=== PATIENT | female | born 1990 | race Caucasian/White ===

== ENCOUNTER 2021-01-28 00:44 | Emergency (ER) | payer OTHER ==
[~2021-01-28] VITALS: Ht 162.6 cm; Wt 127.0 kg
--- NOTE | 2021-01-28 01:47 | PHYS DOC ---
Past History Past Surgical History: Cholecystectomy, (4) General Adult EDM: Chief Complaint: ABDOMINAL PAIN HPI: HPI: ".. I am having really bad abdomen pain.. it zaire started yesterday.. " Patient is a 30 year old female dependent who presents with above hx and complaints generalized abdomen pain which started yesterday. Patient denies any intake of bad food. No recent travel. No specific ill contacts. Has had poor intake of food today. Patient states she has had normal stools. No one else in the hospital is currently ill. has not had any recent overseas deployments. No history of immunosuppression. Patient has had 4 C-sections, and cholecystectomy. No history of colitis, ovarian cysts, or renal stones. Patient denies any vaginal discharge. Patient denies any fever or chills. Patient has not completed COVID vaccination. Patient normally follows at [facility] with Dr. Gracia Review of Systems: Review of Systems: Constitutional: Denies fever or chills Eyes: Denies change in visual acuity HENT: Denies nasal congestion or sore throat Respiratory: Denies cough or shortness of breath Cardiovascular: Denies chest pain or edema GI: Complains of generalized abdominal pain, nausea,. . Vomiting, bloody stools or diarrhea : Denies dysuria Musculoskeletal: Denies back pain or joint pain Integument: Denies rash Neurologic: Denies headache, focal weakness or sensory changes Endocrine: Denies polyuria or polydipsia Lymphatic: Denies swollen glands Psychiatric: Denies depression or anxiety Family History: Family History: Noncontributory to presentation Current Medications: Current Meds: See nursing for home meds Allergies: Allergies: Allergic to sulfa Physical Exam: PE: Constitutional: Moderate acute distress, non-toxic appearance. [] HENT: Normocephalic, atraumatic, bilateral external ears normal, oropharynx moist, no oral exudates, nose normal. [] Eyes: PERRLA, EOMI, conjunctiva normal, no discharge. [] Neck: Normal range of motion, no tenderness, supple, no stridor. [] Cardiovascular:Heart rate regular rhythm, no murmur [] Lungs & Thorax: Bilateral breath sounds equal apex on rauscultation [] Abdomen: Bowel sounds decreased,, soft, generalized tenderness, no masses, no pulsatile masses. Old surgical scars. Rebound to right lower quadrant. Patient declined rectal at this time in the fast-track area. Obese Skin: Warm, dry, no erythema, no rash. [] Back: No tenderness, no CVA tenderness. [] Extremities: No tenderness, no cyanosis, no clubbing, ROM intact, no edema. Right side psoas findings. No cording appreciated Neurologic: Alert and oriented X 3, normal motor function, normal sensory function, no focal deficits noted. [] Psychologic: Affect anxious, judgement normal, mood normal. [] EKG: EKG: My interpretation EKG shows a sinus rhythm at 67 bpm. Does have findings of a right bundle branch block but no acute morphology. Time of this EKG was over 400 hours [] Radiology/Procedures: Radiology/Procedures: [[address] [address] IMAGING REPORT Signed PATIENT: NELSON SUERO MACCOUNT: [id number] : 1990 LOCATION: ER AGE: 30 SEX: F EXAM STATUS: REG ER ORD. PHYSICIAN: VALENTIN CHAPPELL MD REASON: OMNI 300,75ML IV. ABD PAIN PROCEDURE: CT ABD PELV W/ IV CONTRST ONLY Exam: CT abdomen/pelvis with intravenous contrast Indication: Abdominal pain Comparison: None Technique: Helical CT imaging performed of the abdomen and pelvis after the intravenous administration of 75 mL Omnipaque 300 contrast. Sagittal and coronal reformats were obtained. One or more of the following individualized dose reduction techniques were utilized for this examination: 1. Automated exposure control 2. Adjustment of the mA and/or kV according to patient size 3. Use of iterative reconstruction technique. Findings: Lower chest: The lung bases are clear. The heart is normal in size Liver: There is severely decreased hepatic attenuation. Liver is mildly enlarged measuring 22 cm in length. Gallbladder/Biliary Tree: Gallbladder is not visualized. Bile ducts are normal. Pancreas: Normal Spleen: Normal. Adrenal Glands: Normal. Kidneys/Ureters/Bladder: Normal. No hydronephrosis. Reproductive Organs: Normal. Stomach, small bowel, and colon: The stomach and small bowel are normal. The appendix is mildly dilated measuring 8 mm with mild wall thickening and subtle inflammation. No perforation or fluid collection. The colon is normal. Vasculature: No aortic aneurysm. Lymph Nodes: No lymphadenopathy. Peritoneum and retroperitoneum: Trace free fluid in the pelvis. No free air. Bones: No acute osseous abnormality. Mild left greater than right sacroiliac joint sclerosis. Impression: 1. Uncomplicated acute appendicitis. 2. Hepatomegaly and severe hepatic steatosis. FOR INTERNAL CODING PURPOSES Critical result: Findings discussed with Dr. Chappell at 01/28/2021 5:48 AM. RESULT CODE: (C) 1. Electronically signed by: Skylar Bettencourt MD (01/28/2021 5:49 AM) [id number] DICTATED AND SIGNED BY: SKYLAR BETTENCOURT MD DATE: 01/28/21543 CC: VALENTIN CHAPPELL MD; PCP,UNKNOWN ~MTH0 0 ][place] [address] IMAGING REPORT Signed PATIENT: NELSON SUERO MACCOUNT: [id number] : 1990 LOCATION: ER AGE: 30 SEX: F EXAM STATUS: REG ER ORD. PHYSICIAN: VALENTIN CHAPPELL MD REASON: pain PROCEDURE: ACUTE ABDOMEN SERIES EXAM: XR ABDOMEN COMP ACUTE 01/28/2021 3:38 AM CLINICAL INDICATION: Pain COMPARISON: None TECHNIQUE: AP supine and upright view of the abdomen and PA view of the chest FINDINGS: Bowel gas pattern is nonspecific and nonobstructive. Normal volume of stool. There are cholecystectomy clips. No pneumoperitoneum. The heart and lungs are normal. No acute osseous abnormality. IMPRESSION: Normal abdominal series radiograph. Electronically signed by: Skylar Bettencourt MD (01/28/2021 5:21 AM) [id number] DICTATED AND SIGNED BY: SKYLAR BETTENCOURT MD DATE: 01/28/21520 CC: VALENTIN CHAPPELL MD; PCP,UNKNOWN ~MTH0 0 Heart Score: C/O Chest Pain: N/A HEART Score for Chest Pain: HEART Score for Chest Pain Response (Comments) Value History Slighlty/Non-Suspicious 0 ECG Normal 0 Age < 45 0 Risk Factors 1 or 2 Risk Factors 1 Troponin < Normal Limit 0 Total 1 Risk Factors: Risk Factors: DM, Current or recent (<one month) smoker, HTN, HLP, family history of CAD, obesity. Risk Scores: Score 0 - 3: 2.5% MACE over next 6 weeks - Discharge Home Score 4 - 6: 20.3% MACE over next 6 weeks - Admit for Clinical Observation Score 7 - 10: 72.7% MACE over next 6 weeks - Early Invasive Strategies Course & Med Decision Making: Course & Med Decision Making Pertinent Labs and Imaging studies reviewed. (See chart for details) Patient initially requesting discharge not waiting for pending labs or CT results. Pt. reported relief of pain with Toradol. (Patient declined any narcotic meds). Impressed upon patient my feelings that she had a acute appendicitis and should make plans for childcare. Patient requesting she be dscharge and results of labs and CT results be called to her at her home. Pt. did have her IV removed and was in the process of leaving the ED [facility] when results of CT were available. Advised patient that she had acute appendicitis and encouraged her to remain in the emergency department at least get antibiotics started. Patient eventually agrees to antibiotics and transfer to a surgical site. Discussed presentation, testing and treatment plan with Dr. Bennett-agreed to consult on patient. Advised that there are no beds at [facility]-consider transfer to the presurgery area, and complete the surgery. If needed patient could be transferred back to [facility] for a medical bed post surgery. Discussed presentation testing and treatment plan with Dr. Galo-hospitalist at [facility]. Denies he would accept patient as primary and consult Dr. Bennett. Dr. Galo felt there would be medical beds open up this morning. At [facility].. Impression: 1. Abdomen pain 2. Acute appendicitis- 3. Obese 4. Leukocytosis 11.8 Covid testing still pending at shift change. [] Alberto Disclaimer: Alberto Disclaimer: This electronic medical record was generated, in whole or in part, using a voice recognition dictation system. Departure Departure: Referrals: PCP,UNKNOWN (PCP) Alberto Disclaimer This chart was dictated in whole or in part using Voice Recognition software in a busy, high-work load, and often noisy Emergency Department environment. It may contain unintended and wholly unrecognized errors or omissions. VALENTIN CHAPPELL MD Jan 28, 2021 01:47
[2021-01-28 02:16] LABS: BACTERIA,URINE 0 /HPF (0-FEW); BILIRUBIN,URINE NEG (NEG); CLARITY,URINE CLEAR; COLOR,URINE YELLOW; GLUCOSE,URINE NEG (NEG); NITRITE,URINE NEG (NEG); RBC,URINE 0 /HPF (0-2); SQUAMOUS EPITHELIAL CELL,UR OCC /LPF; UROBILINOGEN,URINE 0.2 mg/dL (0.2 mg/dL); WBC,URINE RARE /HPF (0-4)
[2021-01-28] MEDS ORDERED: IOHEXOL 240 MG/ML 50ML VIAL. ONE (03:43)
[2021-01-28] MEDS ORDERED: IOHEXOL 300 MG/ML 75 ML VIAL. IV ONE (03:45)
[2021-01-28] MEDS ORDERED: FAMOTIDINE 20 MG/2 ML VIAL IVP ONE (03:45)
[2021-01-28] MEDS ORDERED: KETOROLAC 30 MG/ML VIAL. IVP ONE (03:45)
[2021-01-28] MEDS ORDERED: ONDANSETRON PF 4 MG/2 ML VIAL. IVP ONE (03:45)
[2021-01-28] MEDS ORDERED: IV RINGERS SOLUTION,LACTATED 1,000 ML IV SCH (03:45)
[2021-01-28] MEDS ORDERED: CONTRAST GIVEN. MC PRN (03:45)
--- NOTE | 2021-01-28 04:13 | EKG ---
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
[2021-01-28 05:15] LABS: BASO % 0 % (0-3); EOS # 0.1 x10^3/uL (0.0-0.7); EOS % 1 % (0-3); HEMATOCRIT 37.4 % (36.0-47.0); HEMOGLOBIN 12.2 g/dL (12.0-15.5); LYMPH # 1.4 x10^3/uL (1.0-4.8); LYMPH % 12 % (24-48); MEAN CORPUSCULAR HEMOGLOBIN 27 pg (25-35); MEAN CORPUSCULAR HGB CONC 33 g/dL (31-37); MEAN CORPUSCULAR VOLUME 83 fL (79-100); MONO # 0.5 x10^3/uL (0.0-1.1); MONO % 5 % (0-9); NEUT # 9.8 x10^3uL (1.8-7.7); NEUT % 83 % (31-73); PLATELET COUNT 246 x10^3/uL (140-400); RED CELL DISTRIBUTION WIDTH 14.2 % (11.5-14.5); WHITE BLOOD COUNT 11.8 x10^3/uL (4.0-11.0)
--- NOTE | 2021-01-28 05:23 | RAD ---
EXAM: XR ABDOMEN COMP ACUTE 01/28/2021 3:38 AM CLINICAL INDICATION: Pain COMPARISON: None TECHNIQUE: AP supine and upright view of the abdomen and PA view of the chest FINDINGS: Bowel gas pattern is nonspecific and nonobstructive. Normal volume of stool. There are cho lecystectomy clips. No pneumoperitoneum. The heart and lungs are normal. No acute osseous abnormality . IMPRESSION: Normal abdominal series radiograph. Electronically signed by: Skylar Bettencourt MD (01/28/2021 5:21 AM) [id number]
[2021-01-28 05:41] LABS: CALCIUM 8.5 mg/dL (8.5-10.1); CREATININE 0.7 mg/dL (0.6-1.0); GFR 99.6; POTASSIUM 4.1 mmol/L (3.5-5.1)
[2021-01-28 05:47] LABS: ALBUMIN 3.7 g/dL (3.4-5.0); DIRECT BILIRUBIN 0.1 mg/dL (0.0-0.2); TOTAL BILIRUBIN 0.2 mg/dL (0.2-1.0); TOTAL PROTEIN 6.8 g/dL (6.4-8.2)
--- NOTE | 2021-01-28 05:51 | RAD ---
Exam: CT abdomen/pelvis with intravenous contrast Indication: Abdominal pain Comparison: None Technique: Helical CT imaging performed of the abdomen and pelvis after the intravenous administratio n of 75 mL Omnipaque 300 contrast. Sagittal and coronal reformats were obtained. One or more of the following individualized dose reduction techniques were utilized for this examinat ion: 1. Automated exposure control 2. Adjustment of the mA and/or kV according to patient size 3. Use of iterative reconstruction technique. Findings: Lower chest: The lung bases are clear. The heart is normal in size Liver: There is severely decreased hepatic attenuation. Liver is mildly enlarged measuring 22 cm in l ength. Gallbladder/Biliary Tree: Gallbladder is not visualized. Bile ducts are normal. Pancreas: Normal Spleen: Normal. Adrenal Glands: Normal. Kidneys/Ureters/Bladder: Normal. No hydronephrosis. Reproductive Organs: Normal. Stomach, small bowel, and colon: The stomach and small bowel are normal. The appendix is mildly dilat ed measuring 8 mm with mild wall thickening and subtle inflammation. No perforation or fluid collecti on. The colon is normal. Vasculature: No aortic aneurysm. Lymph Nodes: No lymphadenopathy. Peritoneum and retroperitoneum: Trace free fluid in the pelvis. No free air. Bones: No acute osseous abnormality. Mild left greater than right sacroiliac joint sclerosis. Impression: 1. Uncomplicated acute appendicitis. 2. Hepatomegaly and severe hepatic steatosis. FOR INTERNAL CODING PURPOSES Critical result: Findings discussed with Dr. Chappell at 01/28/2021 5:48 AM. RESULT CODE: (C) 1. Electronically signed by: Skylar Bettencourt MD (01/28/2021 5:49 AM) [id number]
[2021-01-28] MEDS ORDERED: IV RINGERS SOLUTION,LACTATED 1,000 ML IV ONE (06:00)
[2021-01-28] MEDS ORDERED: IV NORMAL SALINE 50ML 50 ML ONE (06:25)
[2021-01-28] MEDS ORDERED: cefTRIAXone SODIUM 1 GM VIAL ONE (06:25)
[2021-01-28 06:48] LABS: U PREG PATIENT NEGATIVE (NEG)
[2021-01-28 09:09] VITALS: BP 141/73
== END 2021-01-28 09:44 | disposition short-term general hospital (02) ==
LOC: ER 00:44
DX: K35.80 Unspecified acute appendicitis (principal); E66.9 Obesity, unspecified; D72.829 Elevated white blood cell count, unspecified; Z68.42 Body mass index [BMI] 45.0-49.9, adult; Z20.822 Contact with and (suspected) exposure to COVID-19
CPT/HCPCS: 74022; 74177; 80048; 80076; 81001; 81025; 82150; 82550; 83690; 84484; 85025; 87426; 93005; 96361; 96365; 96366; 96367; 96375; 99285; J0696; J1885; J2405; J3490; J7120; Q9967; U0003

== ENCOUNTER 2021-08-14 18:35 | Emergency (ER) | payer OTHER ==
[~2021-08-14] VITALS: Ht 162.6 cm; Wt 127.0 kg
[2021-08-14 19:26] VITALS: BP 135/80
[2021-08-14] MEDS ORDERED: IBUPROFEN 600 MG TABLET. PO ONE (20:15)
--- NOTE | 2021-08-14 20:32 | RAD ---
XR KNEE _4 VIEWS WITH PATELLA_LT History: Reason: fall, pain / Spl. Instructions: / History: Technique: 4 views left knee Comparison: None. Findings: Postoperative changes anterior cruciate ligament repair. Mild right knee degenerative changes most pr ominent within the medial and patellofemoral compartment. Knee joint effusion. Difficult to evaluate quantity due to technique. Anterior knee soft tissue swelling. No dislocation. No acute fracture. Impression: 1. No acute osseous abnormality. 2. Knee joint effusion. 3. Postoperative changes left knee with DJD. Electronically signed by: Nando Vázquez DO (08/14/2021 8:29 PM) [facility]
--- NOTE | 2021-08-14 21:05 | PHYS DOC ---
Past History Additional Past Medical Histor: PRE-ECLAMPSIA (ROXANA SOTO) Past Surgical History: Cholecystectomy, Additional Past Surgical Histo: c -section x 3, left knee x 6 (ROXANA SOTO) Alcohol Use: None (ROXANA SOTO) General Adult EDM: Chief Complaint: KNEE INJURY HPI: HPI: Patient is a 30 year old female with history of 6 left knee surgeries who presents with left knee pain status post mechanical fall at home. Patient states that she recently moved into a new home. She was walking in the backyard, and stepped on a manhole that she was unaware was there. Patient states the manhole cover tipped upwards and she hit the front of her knee on the edge of the manhole. She rates her pain 34 out of 10, however states that when she attempts to walk, her knee "diane underneath" her. Patient denies any other trauma or injury. (ROXANA SOTO) Review of Systems: Review of Systems: ROS negative or noncontributory except as mentioned in HPI. (ROXANA SOTO) Current Medications: Current Meds: Current Medications Medications (Trade) Dose Ordered Sig/Yoel Start Time Stop Time Status Last Admin Dose Admin Ibuprofen (Motrin) 600 mg 1X ONCE 08/14/21 20:15 08/14/21 20:16 DC 08/14/21 20:15 600 MG (ROXANA SOTO) Allergies: Allergies: Allergies Coded Allergies Type Severity Reaction Last Updated Verified Sulfa (Sulfonamide Antibiotics) Allergy Intermediate Unknown 08/14/21 Yes (ROXANA SOTO) Physical Exam: PE: Constitutional: Obese, well-groomed, no acute distress, non-toxic appearance. HENT: Normocephalic, atraumatic, bilateral external ears normal, nose normal. Eyes: EOMI, conjunctiva normal, no discharge. Neck: Normal range of motion, no tenderness, no stridor. Skin: Warm, dry, no erythema, no rash. Back: No step-off, no tenderness. Extremities: Minimal tenderness to palpation to the left knee, PT pulses 2+ and symmetrical. Extremities otherwise no tenderness, no cyanosis, no clubbing, ROM intact, no edema. Neurologic: Alert and oriented x4, no focal deficits noted. (ROXANA SOTO) Current Patient Data: Vital Signs: Vital Signs Date Time Temp Pulse Resp B/P (MAP) Pulse Ox O2 Delivery O2 Flow Rate FiO2 08/14/21 19:26 97.9 87 18 135/80 (98) 99 Room Air (ROXANA SOTO) Radiology/Procedures: Radiology/Procedures: PROCEDURE: KNEE LEFT 4V XR KNEE _4 VIEWS WITH PATELLA_LT History: Reason: fall, pain / Spl. Instructions: / History: Technique: 4 views left knee Comparison: None. Findings: Postoperative changes anterior cruciate ligament repair. Mild right knee degenerative changes most prominent within the medial and patellofemoral compartment. Knee joint effusion. Difficult to evaluate quantity due to technique. Anterior knee soft tissue swelling. No dislocation. No acute fracture. Impression: 1. No acute osseous abnormality. 2. Knee joint effusion. 3. Postoperative changes left knee with DJD. Electronically signed by: Nando Vázquez DO (08/14/2021 8:29 PM) [facility] (ROXANA SOTO) Heart Score: C/O Chest Pain: No (ROXANA SOTO) Course & Med Decision Making: Course & Med Decision Making Pertinent Labs and Imaging studies reviewed. (See chart for details) Patient is a 30-year-old female who has injured her left knee several times prior to today. X-rays ordered to evaluate for acute bony injury. Likely they will be negative. Plain films unremarkable. Patient is advised that due to her history, she is at increased risk for reinjury of the soft tissues of the knee. Patient placed in a knee immobilizer and instructed to follow-up with orthopedic doctors. She states she has not seen her is in over 5 years, and that it was [place]. She was given contact information to reestablish care. Patient was provided with return precautions. She understands and is agreeable to discharge plan. (ROXANA SOTO) Course & Med Decision Making Did not see or evaluate patient. Did not discuss patient with PA. Generally agree with PAs work-up and disposition per note (YOANDY GONZALES MD) Dragon Disclaimer: Dragon Disclaimer: This electronic medical record was generated, in whole or in part, using a voice recognition dictation system. (ROXANA SOTO) Departure Departure: Impression: Primary Impression: Contusion of left knee, initial encounter Additional Impression: History of knee problem Disposition: HOME / SELF CARE / HOMELESS Condition: STABLE Referrals: PCP,UNKNOWN (PCP) EMMA LUO II, MD Patient Instructions: Knee Immobilizer, [id number], Knee Pain, [id number] Additional Instructions: EMERGENCY DEPARTMENT GENERAL DISCHARGE INSTRUCTIONS Thank you for coming to [facility] (ED) today and trusting us with you care. We trust that you had a positive experience in our Emergency Department. If you wish to speak to the department management, you may call the director at [phone]. YOUR FOLLOW UP INSTRUCTIONS ARE FOLLOWS: 1. Follow up with your primary care doctor. If you do not have a primary doctor, please ask for a resource list of physicians or clinics that may be able to assist you with follow up care. 2. The emergency provider has interpreted your imaging studies, if any were ordered. The radiology learning disabilities specialist also reviewed them. If there is a change in the findings, you will be notified in 48 hours when at all possible. 3. If a lab test or culture has been done, your results will be reviewed and you will be notified if you need a change in treatment. 4. Follow instructions verbalized to you and refer to the printouts if needed. ADDITIONAL INSTRUCTIONS AND INFORMATION: 1. Your care today has been supervised by a physician who is specially trained in emergency care. Many problems require more than one evaluation for a complete diagnosis and treatment. We recommend that you schedule your follow up appointment as recommended to ensure complete treatment of you illness or injury. If you are unable to obtain follow up care and continue to have a problem, or if your condition worsens, we recommend that you return to the ED. 2. We are not able to safely determine your condition over the phone nor are we able to give sound medical advice over the phone. For these safety reasons, if you call for medical advice we will ask you to come to the ED for further ev aluation. 3. If you have any questions regarding these discharge instructions please call the ED at [phone]. SAFETY INFORMATION: In the interest of safety, wellness, and injury prevention; we encourage you to wear your seat belt, if you smoke; quite smoking, and we encourage family to use a protective helmet for bicycling and other sporting events that present an increased risk for head injury. IF YOUR SYMPTOMS WORSEN OR NEW SYMPTOMS DEVELOP, OR YOU HAVE CONCERNS ABOUT YOUR CONDITION; OR IF YOUR CONDITION WORSENS WHILE YOU ARE WAITING FOR YOUR FOLLOW UP APPOINTMENT; EITHER CONTACT YOUR PRIMARY CARE DOCTOR, THE PHYSICIAN WHOSE NAME AND NUMBER YOU WERE GIVEN, OR RETURN TO THE ED IMMEDIATELY. ROXANA SOTO Aug 14, 2021 21:05 YOANDY GONZALES MD Aug 14, 2021 21:43
== END 2021-08-14 21:22 | disposition home or self-care (01) ==
LOC: ER 18:35
DX: S80.02XA Contusion of left knee, initial encounter (principal); Z88.2 Allergy status to sulfonamides; W18.39XA Other fall on same level, initial encounter; Y93.01 Activity, walking, marching and hiking; Y92.89 Other specified places as the place of occurrence of the external cause; Y99.8 Other external cause status
CPT/HCPCS: 29505; 73564; 99283